=== PATIENT | male | born 1970 | race African-American/Black ===

== ENCOUNTER 2017-07-14 23:12 | Observation (INO) ==
[2017-07-15] MEDS ORDERED: MORPHINE 2 MG/1 ML SYRINGE IV STA (00:18)
[2017-07-15] MEDS ORDERED: SODIUM CHLORIDE 0.9% 500 ML IV STA (00:18)
[2017-07-15] MEDS ORDERED: ONDANSETRON 4 MG/2 ML VIAL IV STA (00:18)
[2017-07-15] MEDS ORDERED: ACETAMINOPHEN 500 MG TABLET ONE (01:02)
[2017-07-15] MEDS ORDERED: ONDANSETRON 4 MG/2 ML VIAL ONE (01:02)
[2017-07-15] MEDS ORDERED: MORPHINE 2 MG/1 ML SYRINGE ONE (01:03)
[2017-07-15 01:43] LABS: Lactic Acid 0.6 MMOL/L (0.4-2.0)
[2017-07-15 01:45] LABS: Albumin 2.9 G/DL (3.4-5.0); Bilirubin,Total 0.4 MG/DL (0.2-1.0); Calcium 7.7 MG/DL (8.5-10.1); Magnesium 1.7 MG/DL (1.8-2.4); Osmolality,Calculated 298.3 MOS/KG (273-304); Potassium 3.3 MMOL/L (3.5-5.1); Total Protein 6.1 G/DL (6.4-8.3)
[2017-07-15 01:46] LABS: Troponin I Only 0.156 NG/ML (0.00-0.045)
[2017-07-15 01:50] LABS: Basophils # 0.1 10*3/uL (0.0-0.2); Basophils % 0.7 % (0.0-0.8); Eosinophils # 0.2 10*3/uL (0.0-0.87); Eosinophils % 2.4 % (0.00-10.9); Hematocrit 32.9 VOL% (42.0-52.0); Hemoglobin 11.4 GM/DL (14.0-18.0); Immature Granulocytes % 0.6 %; Immature Granulocytes Absolute 0.05 #; Lymphocytes # 1.2 10*3/uL (1.4-4.0); Lymphocytes % 13.9 % (21.2-54.2); Mean Corpuscular HGB Conc 34.7 GM/DL (32-36); Mean Corpuscular Hemoglobin 30 PG (27-34); Mean Corpuscular Volume 85.7 FL (87-102); Mean Platelet Volume 10.7 FL (9.6-12.0); Monocytes # 1.1 10*3/uL (0.11-0.8); Monocytes % 13.1 % (1.7-12.7); Neutrophils % 69.3 % (38.7-73.9); Platelet Count 239 T/CUMM (130-400); Red Blood Count 3.84 MC/CUMM (3.8-5.5); White Blood Count 8.7 T/CUMM (4-12)
[2017-07-15] MEDS ORDERED: hydrALAZINE 20 MG/1 ML VIAL ONE (01:54)
[2017-07-15] MEDS ORDERED: MAGNESIUM SULF RIDER 2 GM in PREMIX 1 EACH IV STA (01:58)
[2017-07-15] MEDS ORDERED: hydrALAZINE 20 MG/1 ML VIAL IV STA (02:01)
[2017-07-15] MEDS ORDERED: MAGNESIUM SULF RIDER 50 ML IV ONE (02:02)
[2017-07-15 02:09] LABS: Apearance,Urine CLEAR (Clear); Bacteria,Urine Occasional /HPF (Few); Bilirubin,Urine Negative (Negative); Blood, Urine Small mg/dL (Negative); Glucose,Urine (UA) Negative (Negative); Ketones,Urine Negative (Negative); Mucus,Urine Occasional /LPF (Occasional); Nitrite,Urine Negative (Negative); Protein,Urine 100 MG/DL; RBC,Urine 8 /HPF (0-4); Squamous Epithelial Cell,Urine Occasional /HPF (0-10); Urine Color Straw (Yellow); Urine Specific Gravity 1.008 (1.001-1.035); Urine Urobilinogen < 2.0 EU/DL (0.2-1.0); WBC,Urine 1 /HPF (0-6)
[2017-07-15] MEDS ORDERED: ACETAMINOPHEN 325 MG TABLET PO PRN (03:32)
[2017-07-15] MEDS ORDERED: hydrALAZINE 20 MG/1 ML VIAL IV PRN (03:42)
[2017-07-15] MEDS ORDERED: INFLUENZA VIRUS VACCINE 0.5 ML SYRINGE IM ONE (05:16)
[2017-07-15 08:14] LABS: Bilirubin,Total 1.2 MG/DL (0.2-1.0); Calcium 7.6 MG/DL (8.5-10.1); Total Protein 5.6 G/DL (6.4-8.3)
[2017-07-15 08:15] LABS: Albumin 2.7 G/DL (3.4-5.0); Osmolality,Calculated 295.4 MOS/KG (273-304); Potassium 3.2 MMOL/L (3.5-5.1)
[2017-07-15] MEDS: hydroCHLOROthiazide 25 MG TABLET PO SCH (08:31)
[2017-07-15] MEDS: amLODIPine 10 MG TABLET PO SCH (08:31)
[2017-07-15] MEDS: PANTOPRAZOLE 40 MG TABLET PO SCH (08:32)
[2017-07-15] MEDS: ISOSORBIDE MONONITRATE 30 MG TABLET PO SCH (08:32)
[2017-07-15] MEDS: OSELTAMIVIR 30 MG CAPSULE PO SCH (08:36)
[2017-07-15] MEDS ORDERED: OSELTAMIVIR 30 MG CAPSULE PO SCH (09:00)
[2017-07-16 04:33] LABS: Basophils % 0.5 % (0.0-0.8); Eosinophils # 0.2 10*3/uL (0.0-0.87); Hematocrit 31.6 VOL% (42.0-52.0); Hemoglobin 10.7 GM/DL (14.0-18.0); Immature Granulocytes % 0.2 %; Immature Granulocytes Absolute 0.01 #; Lymphocytes # 1.5 10*3/uL (1.4-4.0); Lymphocytes % 26.8 % (21.2-54.2); Mean Corpuscular HGB Conc 33.9 GM/DL (32-36); Mean Corpuscular Hemoglobin 29 PG (27-34); Mean Corpuscular Volume 86.3 FL (87-102); Mean Platelet Volume 10.6 FL (9.6-12.0); Monocytes # 0.9 10*3/uL (0.11-0.8); Monocytes % 16.2 % (1.7-12.7); Neutrophils % 52.3 % (38.7-73.9); Platelet Count 210 T/CUMM (130-400); Red Blood Count 3.66 MC/CUMM (3.8-5.5); Red Cell Distribution Width 13.9 % (9.3-17.3); White Blood Count 5.7 T/CUMM (4-12)
[2017-07-16 05:22] LABS: Calcium 7.8 MG/DL (8.5-10.1); Osmolality,Calculated 293.7 MOS/KG (273-304); Potassium 3.2 MMOL/L (3.5-5.1)
[2017-07-16 07:39] LABS: Eosinophils 2 % (0-10); Hypochromasia 1+; Lymphocytes 24 % (20-55); Platelet Estimate Adequate; Segmented Neutrophils 72 % (50-85); Total Cells Counted 100
[2017-07-16] MEDS ORDERED: BISACODYL 5 MG TABLET PO ONE (08:42)
[2017-07-16] MEDS: amLODIPine 10 MG TABLET PO SCH (09:32)
[2017-07-16] MEDS: hydroCHLOROthiazide 25 MG TABLET PO SCH (09:32)
[2017-07-16] MEDS: PANTOPRAZOLE 40 MG TABLET PO SCH (09:33)
[2017-07-16] MEDS: ISOSORBIDE MONONITRATE 30 MG TABLET PO SCH (09:33)
[2017-07-16] MEDS: OSELTAMIVIR 30 MG CAPSULE PO SCH (10:05)
[2017-07-16] MEDS: LABETALOL 200 MG TABLET PO SCH (21:20)
[2017-07-16] MEDS: POTASSIUM BICARB EFFERVESCENT 25 MEQ TABLET PO SCH (21:20)
[2017-07-17 05:18] LABS: Magnesium 2.2 MG/DL (1.8-2.4); Osmolality,Calculated 296.7 MOS/KG (273-304); Potassium 3.1 MMOL/L (3.5-5.1)
[2017-07-17 06:07] LABS: Basophils % 0.6 % (0.0-0.8); Eosinophils # 0.2 10*3/uL (0.0-0.87); Hematocrit 30.5 VOL% (42.0-52.0); Hemoglobin 10.4 GM/DL (14.0-18.0); Immature Granulocytes % 0.4 %; Immature Granulocytes Absolute 0.02 #; Lymphocytes # 1.8 10*3/uL (1.4-4.0); Lymphocytes % 33.8 % (21.2-54.2); Mean Corpuscular HGB Conc 34.1 GM/DL (32-36); Mean Corpuscular Hemoglobin 29 PG (27-34); Mean Corpuscular Volume 85.2 FL (87-102); Mean Platelet Volume 10.9 FL (9.6-12.0); Monocytes # 0.7 10*3/uL (0.11-0.8); Monocytes % 13.6 % (1.7-12.7); Neutrophils # 2.5 10*3/uL (1.4-7.4); Neutrophils % 47.6 % (38.7-73.9); Platelet Count 226 T/CUMM (130-400); Red Blood Count 3.58 MC/CUMM (3.8-5.5); Red Cell Distribution Width 13.8 % (9.3-17.3); White Blood Count 5.3 T/CUMM (4-12)
[2017-07-17 08:50] VITALS: BP 137/75
[2017-07-17] MEDS ORDERED: POTASSIUM CHLORIDE 20 MEQ PACK PO ONE (09:53)
[2017-07-17] MEDS: POTASSIUM BICARB EFFERVESCENT 25 MEQ TABLET PO SCH (10:27)
[2017-07-17] MEDS: ISOSORBIDE MONONITRATE 30 MG TABLET PO SCH (10:27)
[2017-07-17] MEDS: OSELTAMIVIR 30 MG CAPSULE PO SCH (10:28)
[2017-07-17] MEDS: LABETALOL 200 MG TABLET PO SCH (10:28)
[2017-07-17] MEDS: amLODIPine 10 MG TABLET PO SCH (10:28)
[2017-07-17] MEDS: PANTOPRAZOLE 40 MG TABLET PO SCH (10:28)
== END 2017-07-17 12:34 | disposition home or self-care (01) ==
LOC: N.EDINP 23:12 → N.ED 23:12 → N.TELEN 07-15 04:03
PROVIDERS: ADMIT Internal Medicine; ATTEND Internal Medicine

== ENCOUNTER 2017-09-02 08:11 | Inpatient (IN) ==
[2017-09-02] MEDS ORDERED: SODIUM CHLORIDE 0.9% 1,000 ML IV STA (08:51)
[2017-09-02] MEDS ORDERED: cloNIDine 0.1 MG TABLET PO STA (08:51)
[2017-09-02] MEDS ORDERED: cloNIDine 0.1 MG TABLET ONE (09:27)
[2017-09-02 09:30] LABS: Basophils % 0.3 % (0.0-0.8); Eosinophils % 0.3 % (0.00-10.9); Hematocrit 37.1 VOL% (42.0-52.0); Hemoglobin 12.2 GM/DL (14.0-18.0); Immature Granulocytes % 0.7 %; Immature Granulocytes Absolute 0.09 #; Lymphocytes # 0.8 10*3/uL (1.4-4.0); Lymphocytes % 6.6 % (21.2-54.2); Mean Corpuscular HGB Conc 32.9 GM/DL (32-36); Mean Corpuscular Hemoglobin 29 PG (27-34); Mean Corpuscular Volume 87.5 FL (87-102); Mean Platelet Volume 9.7 FL (9.6-12.0); Monocytes % 7.8 % (1.7-12.7); Neutrophils # 10.5 10*3/uL (1.4-7.4); Neutrophils % 84.3 % (38.7-73.9); Platelet Count 284 T/CUMM (130-400); Red Blood Count 4.24 MC/CUMM (3.8-5.5); Red Cell Distribution Width 14.6 % (9.3-17.3); White Blood Count 12.4 T/CUMM (4-12)
[2017-09-02 09:41] LABS: INR 1.1; PT Patient Result 11.4 SECS; Partial Thromboplastin Time 27.3 SECS (0-40)
[2017-09-02] MEDS ORDERED: LEVOFLOXACIN INJ 500 MG in PREMIX 1 EACH IV STA (09:46)
[2017-09-02 09:51] LABS: Albumin 3.7 G/DL (3.4-5.0); Bilirubin,Total 0.6 MG/DL (0.2-1.0); Calcium 8.4 MG/DL (8.5-10.1); Osmolality,Calculated 294.1 MOS/KG (273-304); Potassium 3.9 MMOL/L (3.5-5.1); Troponin I Only 0.027 NG/ML (0.00-0.045)
[2017-09-02] MEDS ORDERED: ALBUTEROL/IPRATROPIUM 3 ML NEB RESP TX STA (10:17)
[2017-09-02] MEDS ORDERED: LEVOFLOXACIN INJ 100 ML IV ONE (11:07)
[2017-09-02] MEDS ORDERED: guaiFENesin/DM ER 600-30 MG TABLET PO PRN (11:12)
[2017-09-02] MEDS ORDERED: ONDANSETRON 4 MG/2 ML VIAL IV PRN (11:12)
[2017-09-02] MEDS ORDERED: ACETAMINOPHEN 325 MG TABLET PO PRN (11:12)
[2017-09-02] MEDS ORDERED: ALBUTEROL 2.5 MG/3 ML NEB RESP TX PRN (11:12)
[2017-09-02] MEDS ORDERED: LEVOFLOXACIN INJ 750 MG in PREMIX 1 EACH IV STA (11:26)
[2017-09-02] MEDS: niCARdipine INJ 25 MG in SODIUM CHLORIDE 0.9% 240 ML IV SCH ×2 (11:37→16:50)
[2017-09-02] MEDS ORDERED: PANTOPRAZOLE 40 MG VIAL IV SCH (12:00)
[2017-09-02] MEDS ORDERED: FUROSEMIDE 40 MG/4 ML VIAL IV ONE (16:35)
[2017-09-02] MEDS ORDERED: BENZONATATE 100 MG CAPSULE PO PRN (16:36)
[2017-09-02] MEDS ORDERED: AZITHROMYCIN INJ 250 MG in SODIUM CHLORIDE 0.9% 250 ML IV SCH (17:00)
[2017-09-02] MEDS ORDERED: SODIUM CHLORIDE 0.9% 1,000 ML IV PRN (18:43)
[2017-09-02] MEDS: LABETALOL 200 MG TABLET PO SCH ×2 (19:07→22:06)
[2017-09-02] MEDS: niCARdipine INJ 50 MG in SODIUM CHLORIDE 0.9% 480 ML IV SCH (19:08)
[2017-09-02] MEDS ORDERED: LABETALOL 200 MG TABLET PO SCH (21:00)
[2017-09-03] MEDS: niCARdipine INJ 50 MG in SODIUM CHLORIDE 0.9% 480 ML IV SCH ×2 (00:19→08:22)
[2017-09-03 06:06] LABS: Basophils % 0.5 % (0.0-0.8); Eosinophils # 0.1 10*3/uL (0.0-0.87); Eosinophils % 1.4 % (0.00-10.9); Hematocrit 29.4 VOL% (42.0-52.0); Hemoglobin 9.5 GM/DL (14.0-18.0); Immature Granulocytes % 0.4 %; Immature Granulocytes Absolute 0.03 #; Lymphocytes # 1.6 10*3/uL (1.4-4.0); Mean Corpuscular HGB Conc 32.3 GM/DL (32-36); Mean Corpuscular Hemoglobin 28 PG (27-34); Mean Corpuscular Volume 87.8 FL (87-102); Monocytes # 0.8 10*3/uL (0.11-0.8); Monocytes % 10.2 % (1.7-12.7); Neutrophils # 5.4 10*3/uL (1.4-7.4); Neutrophils % 67.5 % (38.7-73.9); Platelet Count 233 T/CUMM (130-400); Red Blood Count 3.35 MC/CUMM (3.8-5.5); Red Cell Distribution Width 14.3 % (9.3-17.3)
[2017-09-03 06:33] LABS: Calcium 7.5 MG/DL (8.5-10.1); Osmolality,Calculated 291.4 MOS/KG (273-304); Potassium 3.5 MMOL/L (3.5-5.1)
[2017-09-03] MEDS: ISOSORBIDE MONONITRATE 30 MG TABLET PO SCH (08:53)
[2017-09-03] MEDS: PANTOPRAZOLE 40 MG TABLET PO SCH (08:53)
[2017-09-03] MEDS: LABETALOL 200 MG TABLET PO SCH ×2 (08:53→21:37)
[2017-09-03] MEDS: LEVOFLOXACIN 250 MG TABLET PO SCH (08:53)
[2017-09-03] MEDS ORDERED: FUROSEMIDE 40 MG/4 ML VIAL IV ONE (08:57)
[2017-09-03] MEDS: AZITHROMYCIN 250 MG TABLET PO SCH (09:25)
[2017-09-04 04:41] LABS: Basophils % 0.6 % (0.0-0.8); Eosinophils # 0.2 10*3/uL (0.0-0.87); Eosinophils % 3.2 % (0.00-10.9); Hematocrit 28.5 VOL% (42.0-52.0); Hemoglobin 9.5 GM/DL (14.0-18.0); Immature Granulocytes % 0.3 %; Immature Granulocytes Absolute 0.02 #; Lymphocytes # 1.5 10*3/uL (1.4-4.0); Lymphocytes % 23.6 % (21.2-54.2); Mean Corpuscular HGB Conc 33.3 GM/DL (32-36); Mean Corpuscular Hemoglobin 28 PG (27-34); Mean Corpuscular Volume 85.3 FL (87-102); Mean Platelet Volume 10.5 FL (9.6-12.0); Monocytes # 0.8 10*3/uL (0.11-0.8); Monocytes % 13.3 % (1.7-12.7); Neutrophils # 3.7 10*3/uL (1.4-7.4); Platelet Count 231 T/CUMM (130-400); Red Blood Count 3.34 MC/CUMM (3.8-5.5); Red Cell Distribution Width 14.5 % (9.3-17.3); White Blood Count 6.2 T/CUMM (4-12)
[2017-09-04 05:01] LABS: Magnesium 1.9 MG/DL (1.8-2.4); Osmolality,Calculated 290.4 MOS/KG (273-304); Potassium 3.7 MMOL/L (3.5-5.1)
[2017-09-04] MEDS: AZITHROMYCIN 250 MG TABLET PO SCH (09:25)
[2017-09-04] MEDS: LABETALOL 200 MG TABLET PO SCH ×2 (09:25→21:26)
[2017-09-04] MEDS: PANTOPRAZOLE 40 MG TABLET PO SCH (09:25)
[2017-09-04] MEDS: ISOSORBIDE MONONITRATE 30 MG TABLET PO SCH (09:26)
[2017-09-04] MEDS ORDERED: FUROSEMIDE 80 MG TABLET PO ONE (14:40)
[2017-09-05] MEDS: LEVOFLOXACIN 250 MG TABLET PO SCH (08:45)
[2017-09-05] MEDS: PANTOPRAZOLE 40 MG TABLET PO SCH (08:45)
[2017-09-05] MEDS: LABETALOL 200 MG TABLET PO SCH (08:45)
[2017-09-05] MEDS: AZITHROMYCIN 250 MG TABLET PO SCH (08:45)
[2017-09-05] MEDS: ISOSORBIDE MONONITRATE 30 MG TABLET PO SCH (08:45)
[2017-09-05 12:11] VITALS: BP 141/74
[2017-09-06 15:14] LABS: Myeloperoxidase Antibody < 0.2 U
== END 2017-09-05 14:27 | disposition home or self-care (01) | DRG 682 ==
LOC: N.ED 08:11 → N.EDINP 11:12 → N.CC 12:48 → N.2E 09-04 14:39
PROVIDERS: ADMIT Family Medicine; ATTEND Family Medicine

== ENCOUNTER 2018-03-24 08:34 | Inpatient (IN) ==
[2018-03-24] MEDS ORDERED: ONDANSETRON 4 MG/2 ML VIAL IV STA (09:20)
[2018-03-24] MEDS ORDERED: hydrALAZINE 20 MG/1 ML VIAL IV STA (09:26)
[2018-03-24 10:10] LABS: Basophils % 0.4 % (0.0-0.8); Eosinophils # 0.1 10*3/uL (0.0-0.87); Hematocrit 30.8 VOL% (42.0-52.0); Immature Granulocytes % 0.4 %; Immature Granulocytes Absolute 0.02 #; Lymphocytes # 1.1 10*3/uL (1.4-4.0); Lymphocytes % 20.9 % (21.2-54.2); Mean Corpuscular HGB Conc 32.5 GM/DL (32-36); Mean Corpuscular Hemoglobin 28 PG (27-34); Mean Corpuscular Volume 87.5 FL (87-102); Mean Platelet Volume 10.2 FL (9.6-12.0); Monocytes # 0.6 10*3/uL (0.11-0.8); Monocytes % 12.2 % (1.7-12.7); Neutrophils # 3.3 10*3/uL (1.4-7.4); Neutrophils % 65.1 % (38.7-73.9); Platelet Count 261 T/CUMM (130-400); Red Blood Count 3.52 MC/CUMM (3.8-5.5); White Blood Count 5.1 T/CUMM (4-12)
[2018-03-24 10:33] LABS: Apearance,Urine CLEAR (Clear); Bilirubin,Urine Negative (Negative); Blood, Urine Negative (Negative); Glucose,Urine (UA) Negative (Negative); Ketones,Urine Negative (Negative); Nitrite,Urine Negative (Negative); Protein,Urine 100 MG/DL; RBC,Urine 1 /HPF (0-4); Urine Color Yellow (Yellow); Urine Specific Gravity 1.009 (1.001-1.035); Urine Urobilinogen < 2.0 EU/DL (0.2-1.0); WBC,Urine 2 /HPF (0-6)
[2018-03-24 10:45] LABS: Alkaline Phosphatase 79 U/L (45-117); Aspartate Amino Transferase 22 U/L (0-37); Calcium 8.9 MG/DL (8.5-10.1)
[2018-03-24 10:46] LABS: Alanine Aminotransferase 35 U/L (16-61); Albumin 3.5 G/DL (3.4-5.0); Amylase 80 U/L (25-115); Blood Urea Nitrogen 47 MG/DL (7-18); Glucose 88 MG/DL (74-106); Osmolality,Calculated 293.1 MOS/KG (273-304); Potassium 3.8 MMOL/L (3.5-5.1); Sodium 142 MMOL/L (136-145); Total Protein 6.7 G/DL (6.4-8.3)
[2018-03-24] MEDS ORDERED: ATENOLOL 25 MG TABLET ONE (11:21)
[2018-03-24] MEDS ORDERED: ATENOLOL 25 MG TABLET PO STA (11:21)
[2018-03-24] MEDS ORDERED: ACETAMINOPHEN 325 MG TABLET PO PRN (13:03)
[2018-03-24] MEDS ORDERED: DOCUSATE SODIUM 100 MG CAPSULE PO PRN (13:03)
[2018-03-24] MEDS ORDERED: SODIUM CHLORIDE 0.9% 1,000 ML IV SCH ×2 (13:30→16:00)
[2018-03-24] MEDS ORDERED: LABETALOL 20 MG/4 ML SYRINGE IV STA (14:23)
[2018-03-24] MEDS ORDERED: LABETALOL 100 MG/20 ML VIAL IV ONE (14:31)
[2018-03-24] MEDS ORDERED: hydrALAZINE 20 MG/1 ML VIAL IV PRN (16:53)
[2018-03-24] MEDS ORDERED: ISOSORBIDE MONONITRATE 30 MG TABLET PO SCH (17:00)
[2018-03-24] MEDS ORDERED: amLODIPine 5 MG TABLET PO SCH (17:30)
[2018-03-24] MEDS ORDERED: FUROSEMIDE 80 MG TABLET PO SCH (17:34)
[2018-03-24] MEDS ORDERED: SODIUM CHLORIDE 0.45% 1,000 ML IV SCH (18:20)
[2018-03-24] MEDS: niCARdipine INJ 25 MG in SODIUM CHLORIDE 0.9% 240 ML IV PRN ×2 (18:45→21:35)
[2018-03-24] MEDS ORDERED: LABETALOL 200 MG TABLET PO SCH (21:00)
[2018-03-24] MEDS: niCARdipine INJ 50 MG in SODIUM CHLORIDE 0.9% 480 ML IV PRN (23:34)
[2018-03-25] MEDS: niCARdipine INJ 50 MG in SODIUM CHLORIDE 0.9% 480 ML IV PRN ×5 (03:43→20:40)
[2018-03-25 04:26] LABS: Basophils # 0.1 10*3/uL (0.0-0.2); Basophils % 0.8 % (0.0-0.8); Eosinophils # 0.2 10*3/uL (0.0-0.87); Eosinophils % 2.1 % (0.00-10.9); Hematocrit 34.1 VOL% (42.0-52.0); Hemoglobin 11.2 GM/DL (14.0-18.0); Immature Granulocytes % 0.3 %; Immature Granulocytes Absolute 0.02 #; Lymphocytes # 1.3 10*3/uL (1.4-4.0); Lymphocytes % 16.6 % (21.2-54.2); Mean Corpuscular HGB Conc 32.8 GM/DL (32-36); Mean Corpuscular Hemoglobin 28 PG (27-34); Mean Corpuscular Volume 86.3 FL (87-102); Mean Platelet Volume 10.6 FL (9.6-12.0); Monocytes # 0.8 10*3/uL (0.11-0.8); Monocytes % 10.8 % (1.7-12.7); Neutrophils # 5.4 10*3/uL (1.4-7.4); Neutrophils % 69.4 % (38.7-73.9); Platelet Count 326 T/CUMM (130-400); Red Blood Count 3.95 MC/CUMM (3.8-5.5); White Blood Count 7.8 T/CUMM (4-12)
[2018-03-25 05:04] LABS: Osmolality,Calculated 294.1 MOS/KG (273-304); Potassium 3.7 MMOL/L (3.5-5.1); Risk Ratio 2.86; Thyroid Stimulating Hormone 1.2 uIU/ml (0.358-3.74); VLDL CHOLESTEROL 11.6 MG/DL
[2018-03-25] MEDS: FUROSEMIDE 40 MG/4 ML VIAL IV SCH (08:34)
[2018-03-25] MEDS: ASPIRIN CHEW 81 MG TABLET PO SCH (08:53)
[2018-03-25] MEDS: cloNIDine 0.3 MG/24 HR PATCH TRANSDERM SCH ×2 (08:53→12:00)
[2018-03-25] MEDS ORDERED: PANTOPRAZOLE 40 MG TABLET PO SCH (09:00)
[2018-03-25] MEDS ORDERED: ISOSORBIDE MONONITRATE 30 MG TABLET PO SCH (09:00)
[2018-03-25] MEDS: LABETALOL 200 MG TABLET PO SCH ×2 (10:25→20:41)
[2018-03-25] MEDS ORDERED: METOCLOPRAMIDE 5 MG TABLET PO PRN (11:44)
[2018-03-25] MEDS: ONDANSETRON 4 MG/2 ML VIAL IV PRN ×2 (11:56→18:10)
[2018-03-25] MEDS ORDERED: FUROSEMIDE 80 MG TABLET PO SCH (17:32)
[2018-03-25] MEDS ORDERED: LEVOFLOXACIN INJ 750 MG in PREMIX 1 EACH IV ONE (18:30)
[2018-03-25] MEDS: HYDROmorphone 2 MG/1 ML VIAL IV PRN ×2 (18:32→22:21)
[2018-03-25 18:55] LABS: Basophils % 0.6 % (0.0-0.8); Eosinophils % 0.3 % (0.00-10.9); Hematocrit 34.2 VOL% (42.0-52.0); Hemoglobin 11.2 GM/DL (14.0-18.0); Immature Granulocytes % 0.4 %; Immature Granulocytes Absolute 0.03 #; Lymphocytes # 0.9 10*3/uL (1.4-4.0); Lymphocytes % 12.8 % (21.2-54.2); Mean Corpuscular HGB Conc 32.7 GM/DL (32-36); Mean Corpuscular Hemoglobin 29 PG (27-34); Mean Corpuscular Volume 87.7 FL (87-102); Mean Platelet Volume 10.5 FL (9.6-12.0); Monocytes # 0.5 10*3/uL (0.11-0.8); Monocytes % 6.7 % (1.7-12.7); Neutrophils # 5.3 10*3/uL (1.4-7.4); Neutrophils % 79.2 % (38.7-73.9); Platelet Count 306 T/CUMM (130-400); Red Cell Distribution Width 14.9 % (9.3-17.3); White Blood Count 6.7 T/CUMM (4-12)
[2018-03-25 19:19] LABS: Calcium 8.6 MG/DL (8.5-10.1); Osmolality,Calculated 294.1 MOS/KG (273-304); Potassium 3.7 MMOL/L (3.5-5.1)
[2018-03-25] MEDS: MEROPENEM 500 MG in SODIUM CHLORIDE 0.9% 100 ML IV SCH (20:03)
[2018-03-26] MEDS: niCARdipine INJ 50 MG in SODIUM CHLORIDE 0.9% 480 ML IV PRN ×4 (00:22→23:09)
[2018-03-26] MEDS: HYDROmorphone 2 MG/1 ML VIAL IV PRN ×6 (00:58→22:32)
[2018-03-26 04:30] LABS: Basophils % 0.3 % (0.0-0.8); Eosinophils % 0.2 % (0.00-10.9); Hematocrit 35.7 VOL% (42.0-52.0); Hemoglobin 11.5 GM/DL (14.0-18.0); Immature Granulocytes % 0.3 %; Immature Granulocytes Absolute 0.02 #; Lymphocytes # 0.8 10*3/uL (1.4-4.0); Lymphocytes % 13.7 % (21.2-54.2); Mean Corpuscular HGB Conc 32.2 GM/DL (32-36); Mean Corpuscular Hemoglobin 29 PG (27-34); Mean Corpuscular Volume 88.6 FL (87-102); Mean Platelet Volume 10.6 FL (9.6-12.0); Monocytes # 0.6 10*3/uL (0.11-0.8); Monocytes % 9.2 % (1.7-12.7); Neutrophils # 4.6 10*3/uL (1.4-7.4); Neutrophils % 76.3 % (38.7-73.9); Platelet Count 333 T/CUMM (130-400); Red Blood Count 4.03 MC/CUMM (3.8-5.5); Red Cell Distribution Width 15.1 % (9.3-17.3); White Blood Count 6.1 T/CUMM (4-12)
[2018-03-26 04:45] LABS: Potassium 3.8 MMOL/L (3.5-5.1)
[2018-03-26] MEDS: MEROPENEM 500 MG in SODIUM CHLORIDE 0.9% 100 ML IV SCH ×2 (08:08→20:31)
[2018-03-26] MEDS: ASPIRIN CHEW 81 MG TABLET PO SCH (11:03)
[2018-03-26] MEDS: LABETALOL 200 MG TABLET PO SCH ×2 (11:04→21:07)
[2018-03-26] MEDS: cloNIDine 0.3 MG/24 HR PATCH TRANSDERM SCH (11:25)
[2018-03-26] MEDS: PANTOPRAZOLE 40 MG VIAL IV SCH (11:26)
[2018-03-26] MEDS: FUROSEMIDE 40 MG/4 ML VIAL IV SCH (11:27)
[2018-03-26] MEDS ORDERED: FAMOTIDINE 20 MG/2 ML VIAL IV ONE (19:00)
[2018-03-26] MEDS ORDERED: TISSUE ADHESIVE 1 EACH APPLICATOR TOP ONE (19:54)
[2018-03-26] MEDS ORDERED: PROPOFOL 200 MG/20 ML VIAL IV ONE (20:47)
[2018-03-26] MEDS ORDERED: ROCURONIUM 100 MG/10 ML VIAL IV ONE (20:48)
[2018-03-26] MEDS ORDERED: SUCCINYLCHOLINE 200 MG/10 ML VIAL ONE (20:48)
[2018-03-26] MEDS ORDERED: PHENYLEPHRINE 10 MG/1 ML VIAL IV ONE (20:48)
[2018-03-26] MEDS ORDERED: MIDAZOLAM 2 MG/2 ML VIAL ONE (20:48)
[2018-03-26] MEDS ORDERED: fentaNYL 100 MCG/2 ML VIAL ONE (20:48)
[2018-03-26 20:49] LABS: Apearance,Urine CLEAR (Clear); Bilirubin,Urine Negative (Negative); Blood, Urine Small mg/dL (Negative); Glucose,Urine (UA) Negative (Negative); Hyaline Casts,Urine 1 /LPF (0-3); Ketones,Urine Negative (Negative); Mucus,Urine Occasional /LPF (Occasional); Nitrite,Urine Negative (Negative); Protein,Urine 30 MG/DL; RBC,Urine 1 /HPF (0-4); Urine Color Yellow (Yellow); Urine Specific Gravity 1.008 (1.001-1.035); Urine Urobilinogen < 2.0 EU/DL (0.2-1.0); WBC,Urine 1 /HPF (0-6)
[2018-03-26] MEDS ORDERED: ePHEDrine 50 MG/ML AMP ONE (20:49)
[2018-03-26] MEDS ORDERED: ONDANSETRON 4 MG/2 ML VIAL ONE (20:49)
[2018-03-26] MEDS ORDERED: SEVOFLURANE 1 UNIT/15 MINUTE INH ONE (20:49)
[2018-03-26] MEDS ORDERED: SODIUM CHLORIDE 0.9% 250 ML IV ONE (20:49)
[2018-03-26] MEDS ORDERED: GLYCOPYRROLATE 0.4 MG/2 ML VIAL ONE (20:49)
[2018-03-26] MEDS ORDERED: SODIUM CHLORIDE 0.9% 1,000 ML IV ONE (20:49)
[2018-03-26] MEDS ORDERED: NEOSTIGMINE 10 MG/10 ML VIAL ONE (20:50)
[2018-03-27] MEDS: niCARdipine INJ 50 MG in SODIUM CHLORIDE 0.9% 480 ML IV PRN ×4 (04:13→20:48)
[2018-03-27] MEDS: HYDROmorphone 2 MG/1 ML VIAL IV PRN ×4 (04:17→22:24)
[2018-03-27 05:49] LABS: Basophils # 0.1 10*3/uL (0.0-0.2); Basophils % 0.5 % (0.0-0.8); Eosinophils % 0.1 % (0.00-10.9); Hematocrit 41.4 VOL% (42.0-52.0); Hemoglobin 13.7 GM/DL (14.0-18.0); Immature Granulocytes % 0.5 %; Immature Granulocytes Absolute 0.05 #; Lymphocytes # 0.9 10*3/uL (1.4-4.0); Lymphocytes % 8.7 % (21.2-54.2); Mean Corpuscular HGB Conc 33.1 GM/DL (32-36); Mean Corpuscular Hemoglobin 29 PG (27-34); Mean Corpuscular Volume 86.3 FL (87-102); Mean Platelet Volume 10.4 FL (9.6-12.0); Monocytes % 10.5 % (1.7-12.7); Neutrophils # 7.9 10*3/uL (1.4-7.4); Neutrophils % 79.7 % (38.7-73.9); Platelet Count 366 T/CUMM (130-400); Red Cell Distribution Width 15.4 % (9.3-17.3)
[2018-03-27 06:08] LABS: Albumin 2.8 G/DL (3.4-5.0); Bilirubin,Total 0.5 MG/DL (0.2-1.0); Calcium 8.5 MG/DL (8.5-10.1); Osmolality,Calculated 301.6 MOS/KG (273-304); Potassium 4.1 MMOL/L (3.5-5.1); Total Protein 6.1 G/DL (6.4-8.3)
[2018-03-27] MEDS ORDERED: CLINDAMYCIN INJ 900 MG in PREMIX 1 EACH IV ONE (06:30)
[2018-03-27] MEDS: MEROPENEM 500 MG in SODIUM CHLORIDE 0.9% 100 ML IV SCH ×2 (08:12→23:16)
[2018-03-27] MEDS: ASPIRIN CHEW 81 MG TABLET PO SCH (10:03)
[2018-03-27] MEDS: LABETALOL 200 MG TABLET PO SCH ×2 (10:03→22:25)
[2018-03-27] MEDS: FUROSEMIDE 40 MG/4 ML VIAL IV SCH (10:08)
[2018-03-27] MEDS: PANTOPRAZOLE 40 MG VIAL IV SCH (10:11)
[2018-03-27] MEDS ORDERED: LIDOCAINE/PRILOCAINE CREAM 5 GM TUBE TOP ONE (10:26)
[2018-03-27 12:20] LABS: Hepatitis A Ab IgM Quant 0.26 Index; Hepatitis A Ab IgM Result Negative (Negative); Hepatitis B Core IgM Quant < 0.05 Index; Hepatitis B Core IgM Result Negative (Negative); Hepatitis B Surface Ag Quant < 0.10 Index; Hepatitis B Surface Ag Result Negative (Negative); Hepatitis C Virus Ab Quant 0.02 Index; Hepatitis C Virus Ab Result Negative (Negative)
[2018-03-27] MEDS: LEVOFLOXACIN INJ 500 MG in PREMIX 1 EACH IV SCH (18:09)
[2018-03-28] MEDS: HYDROmorphone 2 MG/1 ML VIAL IV PRN ×4 (01:23→13:39)
[2018-03-28] MEDS: niCARdipine INJ 50 MG in SODIUM CHLORIDE 0.9% 480 ML IV PRN ×4 (01:32→17:17)
[2018-03-28 05:48] LABS: Basophils % 0.4 % (0.0-0.8); Eosinophils # 0.1 10*3/uL (0.0-0.87); Eosinophils % 0.6 % (0.00-10.9); Hematocrit 39.5 VOL% (42.0-52.0); Immature Granulocytes % 0.9 %; Immature Granulocytes Absolute 0.09 #; Lymphocytes # 1.3 10*3/uL (1.4-4.0); Lymphocytes % 12.9 % (21.2-54.2); Mean Corpuscular HGB Conc 32.9 GM/DL (32-36); Mean Corpuscular Hemoglobin 28 PG (27-34); Mean Corpuscular Volume 86.1 FL (87-102); Mean Platelet Volume 9.9 FL (9.6-12.0); Monocytes # 1.3 10*3/uL (0.11-0.8); Monocytes % 12.9 % (1.7-12.7); Neutrophils # 7.3 10*3/uL (1.4-7.4); Neutrophils % 72.3 % (38.7-73.9); Platelet Count 295 T/CUMM (130-400); Red Blood Count 4.59 MC/CUMM (3.8-5.5); Red Cell Distribution Width 15.4 % (9.3-17.3); White Blood Count 10.1 T/CUMM (4-12)
[2018-03-28 06:15] LABS: Osmolality,Calculated 298.7 MOS/KG (273-304); Potassium 3.9 MMOL/L (3.5-5.1)
[2018-03-28] MEDS: MEROPENEM 500 MG in SODIUM CHLORIDE 0.9% 100 ML IV SCH ×2 (07:48→20:20)
[2018-03-28] MEDS: ASPIRIN CHEW 81 MG TABLET PO SCH (09:46)
[2018-03-28] MEDS: LABETALOL 200 MG TABLET PO SCH ×2 (09:47→20:20)
[2018-03-28] MEDS: HEPARIN 5,000 UNIT/1 ML VIAL SUBCUT SCH ×2 (09:51→16:56)
[2018-03-28] MEDS: FUROSEMIDE 40 MG/4 ML VIAL IV SCH (09:54)
[2018-03-28] MEDS: PANTOPRAZOLE 40 MG VIAL IV SCH (09:57)
[2018-03-28] MEDS ORDERED: LIDOCAINE/PRILOCAINE CREAM 5 GM TUBE TOP PRN (11:30)
[2018-03-28] MEDS: hydrALAZINE 20 MG/1 ML VIAL IV PRN ×2 (13:37→15:12)
[2018-03-28] MEDS: NITROPRUSSIDE 100 MG in DEXTROSE 5% 246 ML IV PRN (17:19)
[2018-03-29] MEDS: HEPARIN 5,000 UNIT/1 ML VIAL SUBCUT SCH ×3 (00:16→18:23)
[2018-03-29] MEDS: HYDROmorphone 2 MG/1 ML VIAL IV PRN ×2 (00:23→18:19)
[2018-03-29 04:45] LABS: Basophils % 0.2 % (0.0-0.8); Red Cell Distribution Width 15.1 % (9.3-17.3)
[2018-03-29 05:01] LABS: Eosinophils % 0.3 % (0.00-10.9); Hematocrit 31.5 VOL% (42.0-52.0); Immature Granulocytes % 0.6 %; Immature Granulocytes Absolute 0.08 #; Lymphocytes % 8.1 % (21.2-54.2); Mean Corpuscular Hemoglobin 29 PG (27-34); Mean Corpuscular Volume 87.3 FL (87-102); Mean Platelet Volume 10.4 FL (9.6-12.0); Monocytes # 1.4 10*3/uL (0.11-0.8); Monocytes % 10.8 % (1.7-12.7); Neutrophils # 10.1 10*3/uL (1.4-7.4); Platelet Count 237 T/CUMM (130-400); White Blood Count 12.6 T/CUMM (4-12)
[2018-03-29 05:07] LABS: Calcium 7.7 MG/DL (8.5-10.1); Osmolality,Calculated 300.7 MOS/KG (273-304); Potassium 3.6 MMOL/L (3.5-5.1)
[2018-03-29 05:12] LABS: Hemoglobin 10.4 GM/DL (14.0-18.0); Red Blood Count 3.61 MC/CUMM (3.8-5.5)
[2018-03-29] MEDS: NITROPRUSSIDE 100 MG in DEXTROSE 5% 246 ML IV PRN ×2 (05:15→21:00)
[2018-03-29] MEDS: MEROPENEM 500 MG in SODIUM CHLORIDE 0.9% 100 ML IV SCH ×2 (08:04→19:59)
[2018-03-29] MEDS: PANTOPRAZOLE 40 MG VIAL IV SCH (08:05)
[2018-03-29] MEDS: ASPIRIN CHEW 81 MG TABLET PO SCH (08:14)
[2018-03-29] MEDS: LABETALOL 200 MG TABLET PO SCH ×2 (08:15→20:00)
[2018-03-29] MEDS: FUROSEMIDE 40 MG/4 ML VIAL IV SCH (08:50)
[2018-03-29] MEDS: hydrALAZINE 20 MG/1 ML VIAL IV PRN ×3 (15:32→23:34)
[2018-03-29] MEDS: LEVOFLOXACIN INJ 500 MG in PREMIX 1 EACH IV SCH (18:49)
[2018-03-30] MEDS ORDERED: LABETALOL 20 MG/4 ML SYRINGE IV PRN (00:20)
[2018-03-30] MEDS: HEPARIN 5,000 UNIT/1 ML VIAL SUBCUT SCH ×3 (00:39→19:16)
[2018-03-30] MEDS: hydrALAZINE 20 MG/1 ML VIAL IV PRN ×4 (03:20→10:07)
[2018-03-30 04:21] LABS: Basophils % 0.3 % (0.0-0.8); Eosinophils # 0.1 10*3/uL (0.0-0.87); Eosinophils % 1.1 % (0.00-10.9); Hematocrit 28.2 VOL% (42.0-52.0); Hemoglobin 9.4 GM/DL (14.0-18.0); Immature Granulocytes % 0.5 %; Immature Granulocytes Absolute 0.05 #; Lymphocytes # 1.5 10*3/uL (1.4-4.0); Lymphocytes % 14.4 % (21.2-54.2); Mean Corpuscular HGB Conc 33.3 GM/DL (32-36); Mean Corpuscular Hemoglobin 29 PG (27-34); Mean Corpuscular Volume 86.2 FL (87-102); Mean Platelet Volume 10.3 FL (9.6-12.0); Monocytes # 1.2 10*3/uL (0.11-0.8); Monocytes % 12.1 % (1.7-12.7); Neutrophils # 7.3 10*3/uL (1.4-7.4); Neutrophils % 71.6 % (38.7-73.9); Platelet Count 208 T/CUMM (130-400); Red Blood Count 3.27 MC/CUMM (3.8-5.5); Red Cell Distribution Width 14.9 % (9.3-17.3); White Blood Count 10.1 T/CUMM (4-12)
[2018-03-30 04:55] LABS: Calcium 8.1 MG/DL (8.5-10.1); Osmolality,Calculated 294.8 MOS/KG (273-304); Potassium 3.7 MMOL/L (3.5-5.1)
[2018-03-30] MEDS: MEROPENEM 500 MG in SODIUM CHLORIDE 0.9% 100 ML IV SCH ×2 (08:03→20:51)
[2018-03-30] MEDS: ASPIRIN CHEW 81 MG TABLET PO SCH (08:26)
[2018-03-30] MEDS: LABETALOL 200 MG TABLET PO SCH ×2 (08:26→20:51)
[2018-03-30] MEDS: FUROSEMIDE 40 MG/4 ML VIAL IV SCH (08:35)
[2018-03-30] MEDS: PANTOPRAZOLE 40 MG VIAL IV SCH (08:38)
[2018-03-31] MEDS: HEPARIN 5,000 UNIT/1 ML VIAL SUBCUT SCH ×3 (01:56→16:52)
[2018-03-31] MEDS: hydrALAZINE 20 MG/1 ML VIAL IV PRN (03:43)
[2018-03-31 05:13] LABS: Basophils % 0.4 % (0.0-0.8); Eosinophils # 0.1 10*3/uL (0.0-0.87); Hematocrit 30.6 VOL% (42.0-52.0); Hemoglobin 10.3 GM/DL (14.0-18.0); Immature Granulocytes % 0.6 %; Immature Granulocytes Absolute 0.04 #; Lymphocytes # 1.5 10*3/uL (1.4-4.0); Lymphocytes % 21.7 % (21.2-54.2); Mean Corpuscular HGB Conc 33.7 GM/DL (32-36); Mean Corpuscular Hemoglobin 28 PG (27-34); Mean Corpuscular Volume 83.6 FL (87-102); Mean Platelet Volume 9.5 FL (9.6-12.0); Monocytes % 13.8 % (1.7-12.7); Neutrophils # 4.2 10*3/uL (1.4-7.4); Neutrophils % 61.5 % (38.7-73.9); Platelet Count 231 T/CUMM (130-400); Red Blood Count 3.66 MC/CUMM (3.8-5.5); Red Cell Distribution Width 14.4 % (9.3-17.3); White Blood Count 6.9 T/CUMM (4-12)
[2018-03-31 05:38] LABS: Osmolality,Calculated 288.5 MOS/KG (273-304); Potassium 3.4 MMOL/L (3.5-5.1)
[2018-03-31] MEDS: LABETALOL 200 MG TABLET PO SCH ×2 (09:12→21:41)
[2018-03-31] MEDS: ASPIRIN CHEW 81 MG TABLET PO SCH (09:12)
[2018-03-31] MEDS: FUROSEMIDE 40 MG TABLET PO SCH (09:12)
[2018-03-31] MEDS: MEROPENEM 500 MG in SODIUM CHLORIDE 0.9% 100 ML IV SCH (09:13)
[2018-04-01] MEDS: HEPARIN 5,000 UNIT/1 ML VIAL SUBCUT SCH ×3 (00:06→18:16)
[2018-04-01] MEDS: LABETALOL 200 MG TABLET PO SCH ×2 (14:25→21:33)
[2018-04-01] MEDS: ASPIRIN CHEW 81 MG TABLET PO SCH (14:25)
[2018-04-01] MEDS: FUROSEMIDE 40 MG TABLET PO SCH (14:25)
[2018-04-02] MEDS: HEPARIN 5,000 UNIT/1 ML VIAL SUBCUT SCH ×3 (01:38→16:43)
[2018-04-02] MEDS: ASPIRIN CHEW 81 MG TABLET PO SCH (10:10)
[2018-04-02] MEDS: FUROSEMIDE 40 MG TABLET PO SCH (10:10)
[2018-04-02] MEDS: LABETALOL 200 MG TABLET PO SCH ×2 (10:11→20:31)
[2018-04-02 11:05] LABS: Basophils % 0.5 % (0.0-0.8); Eosinophils # 0.3 10*3/uL (0.0-0.87); Eosinophils % 4.7 % (0.00-10.9); Hematocrit 30.5 VOL% (42.0-52.0); Hemoglobin 10.3 GM/DL (14.0-18.0); Immature Granulocytes % 0.4 %; Immature Granulocytes Absolute 0.02 #; Lymphocytes # 1.4 10*3/uL (1.4-4.0); Lymphocytes % 25.4 % (21.2-54.2); Mean Corpuscular HGB Conc 33.8 GM/DL (32-36); Mean Corpuscular Hemoglobin 28 PG (27-34); Mean Platelet Volume 10.3 FL (9.6-12.0); Monocytes # 1.1 10*3/uL (0.11-0.8); Neutrophils # 2.8 10*3/uL (1.4-7.4); Platelet Count 282 T/CUMM (130-400); Red Blood Count 3.63 MC/CUMM (3.8-5.5); White Blood Count 5.5 T/CUMM (4-12)
[2018-04-02 11:36] LABS: Calcium 8.5 MG/DL (8.5-10.1); Osmolality,Calculated 281.8 MOS/KG (273-304); Potassium 3.6 MMOL/L (3.5-5.1)
[2018-04-02 13:00] LABS: Eosinophils 3 % (0-10); Lymphocytes 28 % (20-55); Segmented Neutrophils 41 % (50-85); Total Cells Counted 100
[2018-04-02 13:01] LABS: Hypochromasia 1+; Microcytosis Slight; Platelet Estimate Normal; Polychromasia Slight
[2018-04-03] MEDS: HEPARIN 5,000 UNIT/1 ML VIAL SUBCUT SCH ×2 (00:25→09:58)
[2018-04-03] MEDS: hydrALAZINE 20 MG/1 ML VIAL IV PRN (05:13)
[2018-04-03] MEDS ORDERED: ALUMINUM/MAGNES/SIMETH MAX STR 30 ML UDCUP PO PRN (06:03)
[2018-04-03 07:11] LABS: Basophils % 0.6 % (0.0-0.8); Eosinophils # 0.2 10*3/uL (0.0-0.87); Eosinophils % 3.7 % (0.00-10.9); Hematocrit 31.7 VOL% (42.0-52.0); Hemoglobin 10.9 GM/DL (14.0-18.0); Immature Granulocytes % 0.7 %; Immature Granulocytes Absolute 0.04 #; Lymphocytes # 1.5 10*3/uL (1.4-4.0); Mean Corpuscular HGB Conc 34.4 GM/DL (32-36); Mean Corpuscular Hemoglobin 29 PG (27-34); Mean Corpuscular Volume 84.1 FL (87-102); Mean Platelet Volume 10.4 FL (9.6-12.0); Monocytes # 0.9 10*3/uL (0.11-0.8); Monocytes % 17.4 % (1.7-12.7); Neutrophils # 2.7 10*3/uL (1.4-7.4); Neutrophils % 49.6 % (38.7-73.9); Platelet Count 294 T/CUMM (130-400); Red Blood Count 3.77 MC/CUMM (3.8-5.5); Red Cell Distribution Width 13.9 % (9.3-17.3); White Blood Count 5.4 T/CUMM (4-12)
[2018-04-03 07:37] LABS: Atypical Lymphocytes Few; Eosinophils 4 % (0-10); Hypochromasia 1+; Lymphocytes 35 % (20-55); Microcytosis Slight; Platelet Estimate Normal; Segmented Neutrophils 46 % (50-85); Total Cells Counted 100
[2018-04-03 07:45] LABS: Albumin 2.6 G/DL (3.4-5.0); Calcium 8.7 MG/DL (8.5-10.1); Osmolality,Calculated 283.8 MOS/KG (273-304); Potassium 4.2 MMOL/L (3.5-5.1)
[2018-04-03 07:48] LABS: Ferritin 131.5 ng/ml (26-388)
[2018-04-03] MEDS ORDERED: PANTOPRAZOLE 40 MG TABLET PO SCH (09:00)
[2018-04-03 09:37] LABS: Folate 6.1 NG/ML (5.4-24.0); Vitamin B12 546 PG/ML (211-911)
[2018-04-03] MEDS: FUROSEMIDE 40 MG TABLET PO SCH (09:57)
[2018-04-03] MEDS: LABETALOL 200 MG TABLET PO SCH (09:57)
[2018-04-03] MEDS: ASPIRIN CHEW 81 MG TABLET PO SCH (09:57)
[2018-04-03 10:49] LABS: Sedimentation Rate-Westergren 45 MM/HR (0-15)
[2018-04-03] MEDS ORDERED: DOCUSATE SODIUM 100 MG CAPSULE PO SCH (11:00)
[2018-04-03 13:25] VITALS: BP 154/88
== END 2018-04-03 15:45 | disposition home or self-care (01) | DRG 356 ==
LOC: N.ED 08:34 → SUATTDRO 11:55 → N.EDINP 11:55 → N.2E 15:35 → N.ICU 18:11 → N.5E 03-31 11:47
PROVIDERS: ADMIT Internal Medicine; ATTEND Internal Medicine

== ENCOUNTER 2019-11-17 06:18 | Inpatient (IN) ==
[2019-11-17 07:12] LABS: Basophils % 0.3 % (0.0-0.8); Hematocrit 45.2 VOL% (42.0-52.0); Hemoglobin 15.2 GM/DL (14.0-18.0); Immature Granulocytes % 0.6 %; Immature Granulocytes Absolute 0.02 #; Lymphocytes # 0.6 10*3/uL (1.4-4.0); Lymphocytes % 18.3 % (21.2-54.2); Mean Corpuscular HGB Conc 33.6 GM/DL (32-36); Mean Corpuscular Volume 86.8 FL (87-102); Mean Platelet Volume 10.7 FL (9.6-12.0); Monocytes % 9.2 % (1.7-12.7); Neutrophils % 71.6 % (38.7-73.9); Platelet Count 185 T/CUMM (130-400); Red Blood Count 5.21 MC/CUMM (3.8-5.5); Red Cell Distribution Width 14.9 % (9.3-17.3); White Blood Count 3.4 T/CUMM (4-12)
[2019-11-17 07:24] LABS: Bilirubin,Total 0.5 MG/DL (0.2-1.0); Calcium 8.3 MG/DL (8.5-10.1); Osmolality,Calculated 270.6 MOS/KG (273-304); Total Protein 6.8 G/DL (6.4-8.3)
[2019-11-17] MEDS ORDERED: hydrALAZINE 20 MG/1 ML VIAL IV PRN (09:39)
[2019-11-17 10:10] LABS: Apearance,Urine CLEAR (Clear); Bilirubin,Urine Negative (Negative); Blood, Urine Small mg/dL (Negative); Glucose,Urine (UA) Negative (Negative); Ketones,Urine Negative (Negative); Nitrite,Urine Negative (Negative); Protein,Urine 100 MG/DL; RBC,Urine 1 /HPF (0-4); Squamous Epithelial Cell,Urine Occasional /HPF (0-10); Urine Color Yellow (Yellow); Urine Specific Gravity 1.012 (1.001-1.035); Urine Urobilinogen < 2.0 EU/DL (0.2-1.0)
[2019-11-17] MEDS ORDERED: HYDROXYCHLOROQUINE 200 MG TABLET PO SCH (10:30)
[2019-11-17] MEDS ORDERED: LEVOFLOXACIN INJ 750 MG in PREMIX 1 EACH IV SCH (10:30)
[2019-11-17] MEDS: LABETALOL 200 MG TABLET PO SCH ×2 (11:33→21:30)
[2019-11-17] MEDS: PANTOPRAZOLE 40 MG TABLET PO SCH (11:33)
[2019-11-17] MEDS: SEVELAMER CARBONATE 800 MG TABLET PO SCH ×2 (11:57→18:19)
[2019-11-17] MEDS: DOXYCYCLINE HYCLATE INJ 100 MG in SODIUM CHLORIDE 0.9% 100 ML IV SCH (11:57)
[2019-11-17] MEDS ORDERED: OSELTAMIVIR 30 MG CAPSULE PO ONE (12:00)
[2019-11-17 12:27] LABS: Albumin 2.8 G/DL (3.4-5.0); Bilirubin,Direct 0.14 MG/DL (0.0-0.20); Bilirubin,Indirect 0.3 MG/DL (0.0-1.0); Bilirubin,Total 0.4 MG/DL (0.2-1.0); Total Protein 6.4 G/DL (6.4-8.3)
[2019-11-17] MEDS: AZITHROMYCIN INJ 500 MG in SODIUM CHLORIDE 0.9% 250 ML IV SCH (14:06)
[2019-11-17] MEDS: HYDROXYCHLOROQUINE 200 MG TABLET PO SCH (14:06)
[2019-11-17] MEDS ORDERED: MORPHINE 4 MG/1 ML VIAL ONE (14:33)
[2019-11-17] MEDS ORDERED: NITROGLYCERIN SL 0.4 MG TABLET SL ONE (14:36)
[2019-11-17] MEDS ORDERED: MORPHINE 4 MG/1 ML VIAL IV PRN (14:43)
[2019-11-17 15:17] LABS: CKMB % 1.8 %
[2019-11-17 15:23] LABS: Troponin I 0.109 NG/ML (0.00-0.045)
[2019-11-17] MEDS: ISOSORBIDE MONONITRATE 30 MG TABLET PO SCH (15:57)
[2019-11-18] MEDS: DOXYCYCLINE HYCLATE INJ 100 MG in SODIUM CHLORIDE 0.9% 100 ML IV SCH (00:30)
[2019-11-18 04:50] LABS: Basophils % 0.6 % (0.0-0.8); Hemoglobin 14.2 GM/DL (14.0-18.0); Immature Granulocytes % 0.6 %; Immature Granulocytes Absolute 0.02 #; Lymphocytes # 0.7 10*3/uL (1.4-4.0); Lymphocytes % 20.4 % (21.2-54.2); Mean Corpuscular HGB Conc 34.6 GM/DL (32-36); Mean Corpuscular Volume 84.9 FL (87-102); Mean Platelet Volume 10.7 FL (9.6-12.0); Monocytes % 11.5 % (1.7-12.7); Neutrophils % 66.9 % (38.7-73.9); Platelet Count 175 T/CUMM (130-400); Red Blood Count 4.83 MC/CUMM (3.8-5.5); Red Cell Distribution Width 14.9 % (9.3-17.3); White Blood Count 3.5 T/CUMM (4-12)
[2019-11-18 05:35] LABS: Troponin I 0.079 NG/ML (0.00-0.045)
[2019-11-18 07:03] LABS: Albumin 2.6 G/DL (3.4-5.0); Bilirubin,Total 0.5 MG/DL (0.2-1.0); Calcium 8.2 MG/DL (8.5-10.1); Osmolality,Calculated 280.1 MOS/KG (273-304); Total Protein 6.2 G/DL (6.4-8.3)
[2019-11-18] MEDS: ISOSORBIDE MONONITRATE 30 MG TABLET PO SCH (08:40)
[2019-11-18] MEDS: HYDROXYCHLOROQUINE 200 MG TABLET PO SCH ×2 (08:40→20:37)
[2019-11-18] MEDS: PANTOPRAZOLE 40 MG TABLET PO SCH (08:40)
[2019-11-18] MEDS: ASPIRIN CHEW 81 MG TABLET PO SCH (08:40)
[2019-11-18] MEDS: LABETALOL 200 MG TABLET PO SCH ×2 (08:40→20:37)
[2019-11-18] MEDS: SEVELAMER CARBONATE 800 MG TABLET PO SCH ×3 (08:40→17:56)
[2019-11-18] MEDS: HEPARIN 5,000 UNIT/1 ML VIAL SUBCUT SCH ×2 (11:43→20:35)
[2019-11-18] MEDS: ZINC SULFATE 220 MG CAPSULE PO SCH (11:44)
[2019-11-18] MEDS ORDERED: AZTREONAM 2,000 MG in SYRINGE 1 EACH IV ONE (12:00)
[2019-11-18] MEDS: AZITHROMYCIN INJ 500 MG in SODIUM CHLORIDE 0.9% 250 ML IV SCH (15:07)
[2019-11-18] MEDS: AZTREONAM 500 MG in SODIUM CHLORIDE 0.9% 50 ML IV SCH ×2 (17:56→23:49)
[2019-11-18] MEDS ORDERED: ACETAMINOPHEN 325 MG/10.15 ML UDCUP PO ONE (20:55)
[2019-11-19 05:37] LABS: Basophils % 0.5 % (0.0-0.8); Hematocrit 43.3 VOL% (42.0-52.0); Hemoglobin 14.6 GM/DL (14.0-18.0); Immature Granulocytes % 0.5 %; Immature Granulocytes Absolute 0.02 #; Lymphocytes # 0.6 10*3/uL (1.4-4.0); Lymphocytes % 15.5 % (21.2-54.2); Mean Corpuscular HGB Conc 33.7 GM/DL (32-36); Mean Corpuscular Volume 86.8 FL (87-102); Mean Platelet Volume 10.3 FL (9.6-12.0); Monocytes % 11.7 % (1.7-12.7); Neutrophils % 71.8 % (38.7-73.9); Platelet Count 224 T/CUMM (130-400); Red Blood Count 4.99 MC/CUMM (3.8-5.5); Red Cell Distribution Width 15.1 % (9.3-17.3); White Blood Count 3.9 T/CUMM (4-12)
[2019-11-19] MEDS: HEPARIN 5,000 UNIT/1 ML VIAL SUBCUT SCH ×3 (05:39→21:12)
[2019-11-19] MEDS: ACETAMINOPHEN 325 MG TABLET PO PRN (05:39)
[2019-11-19 06:00] LABS: Albumin 2.5 G/DL (3.4-5.0); Bilirubin,Total 0.5 MG/DL (0.2-1.0); Calcium 8.3 MG/DL (8.5-10.1); Osmolality,Calculated 287.1 MOS/KG (273-304); Total Protein 6.4 G/DL (6.4-8.3)
[2019-11-19] MEDS: AZTREONAM 500 MG in SODIUM CHLORIDE 0.9% 50 ML IV SCH ×3 (06:14→17:50)
[2019-11-19] MEDS: ASPIRIN CHEW 81 MG TABLET PO SCH (09:15)
[2019-11-19] MEDS: HYDROXYCHLOROQUINE 200 MG TABLET PO SCH ×2 (09:15→21:13)
[2019-11-19] MEDS: ISOSORBIDE MONONITRATE 30 MG TABLET PO SCH (09:15)
[2019-11-19] MEDS: AZITHROMYCIN 250 MG TABLET PO SCH (09:15)
[2019-11-19] MEDS: PANTOPRAZOLE 40 MG TABLET PO SCH (09:15)
[2019-11-19] MEDS: LABETALOL 200 MG TABLET PO SCH ×2 (09:15→21:13)
[2019-11-19] MEDS: SEVELAMER CARBONATE 800 MG TABLET PO SCH ×3 (09:15→17:50)
[2019-11-20] MEDS: ACETAMINOPHEN 325 MG TABLET PO PRN (00:51)
[2019-11-20] MEDS: AZTREONAM 500 MG in SODIUM CHLORIDE 0.9% 50 ML IV SCH ×5 (00:51→23:13)
[2019-11-20 03:36] LABS: ABG Base Excess -2.7 MMOL/L (-2.5-2.5); ABG Oxygen Saturation 89.5 % (95-100); ABG PCO2 35.3 MM HG (35-48); ABG PH 7.394 (7.35-7.45); ABG TCO2 18.8 MMOL/L (23-27); Allen Test Positive
[2019-11-20 04:46] LABS: Basophils % 0.2 % (0.0-0.8); Hematocrit 40.4 VOL% (42.0-52.0); Hemoglobin 13.5 GM/DL (14.0-18.0); Immature Granulocytes % 1.1 %; Immature Granulocytes Absolute 0.05 #; Lymphocytes # 0.9 10*3/uL (1.4-4.0); Lymphocytes % 19.7 % (21.2-54.2); Mean Corpuscular HGB Conc 33.4 GM/DL (32-36); Mean Corpuscular Volume 87.1 FL (87-102); Mean Platelet Volume 10.1 FL (9.6-12.0); Monocytes % 10.8 % (1.7-12.7); Neutrophils % 68.2 % (38.7-73.9); Platelet Count 274 T/CUMM (130-400); Red Blood Count 4.64 MC/CUMM (3.8-5.5); Red Cell Distribution Width 15.2 % (9.3-17.3); White Blood Count 4.4 T/CUMM (4-12)
[2019-11-20 04:57] LABS: Albumin 2.4 G/DL (3.4-5.0); Bilirubin,Total 0.4 MG/DL (0.2-1.0); Calcium 7.9 MG/DL (8.5-10.1); Osmolality,Calculated 289.9 MOS/KG (273-304); Total Protein 6.3 G/DL (6.4-8.3)
[2019-11-20 05:23] LABS: Band Neutrophils 2 % (0-10); Lymphocytes 13 % (20-55); Platelet Estimate Adequate; Segmented Neutrophils 70 % (50-85); Total Cells Counted 100
[2019-11-20 05:24] LABS: Hypochromasia 1+; Ovalocytes Slight
[2019-11-20] MEDS: HEPARIN 5,000 UNIT/1 ML VIAL SUBCUT SCH ×3 (05:49→19:29)
[2019-11-20] MEDS: AZITHROMYCIN 250 MG TABLET PO SCH (08:15)
[2019-11-20] MEDS: ZINC SULFATE 220 MG CAPSULE PO SCH (08:15)
[2019-11-20] MEDS: PANTOPRAZOLE 40 MG TABLET PO SCH (08:15)
[2019-11-20] MEDS: SEVELAMER CARBONATE 800 MG TABLET PO SCH ×3 (08:15→16:15)
[2019-11-20] MEDS: ASPIRIN CHEW 81 MG TABLET PO SCH (08:15)
[2019-11-20] MEDS: HYDROXYCHLOROQUINE 200 MG TABLET PO SCH ×2 (08:15→21:07)
[2019-11-20] MEDS: ISOSORBIDE MONONITRATE 30 MG TABLET PO SCH (08:15)
[2019-11-20] MEDS: LABETALOL 200 MG TABLET PO SCH ×2 (08:15→21:07)
[2019-11-21] MEDS: HEPARIN 5,000 UNIT/1 ML VIAL SUBCUT SCH ×3 (03:39→20:15)
[2019-11-21] MEDS: ACETAMINOPHEN 325 MG TABLET PO PRN ×2 (03:42→20:15)
[2019-11-21] MEDS: AZTREONAM 500 MG in SODIUM CHLORIDE 0.9% 50 ML IV SCH ×3 (05:00→20:15)
[2019-11-21 05:16] LABS: Basophils % 0.5 % (0.0-0.8); Hematocrit 37.7 VOL% (42.0-52.0); Hemoglobin 12.9 GM/DL (14.0-18.0); Immature Granulocytes % 3.6 %; Immature Granulocytes Absolute 0.16 #; Lymphocytes # 0.7 10*3/uL (1.4-4.0); Mean Corpuscular HGB Conc 34.2 GM/DL (32-36); Mean Corpuscular Volume 85.5 FL (87-102); Mean Platelet Volume 10.3 FL (9.6-12.0); Monocytes % 9.5 % (1.7-12.7); Neutrophils % 70.4 % (38.7-73.9); Platelet Count 307 T/CUMM (130-400); Red Blood Count 4.41 MC/CUMM (3.8-5.5); White Blood Count 4.4 T/CUMM (4-12)
[2019-11-21 05:29] LABS: Calcium 8.1 MG/DL (8.5-10.1); Osmolality,Calculated 291.4 MOS/KG (273-304)
[2019-11-21 05:50] LABS: Eosinophils 1 % (0-10); Hypochromasia 1+; Lymphocytes 11 % (20-55); Ovalocytes Slight; Platelet Estimate Adequate; Segmented Neutrophils 78 % (50-85); Total Cells Counted 100
[2019-11-21] MEDS: PANTOPRAZOLE 40 MG TABLET PO SCH (08:28)
[2019-11-21] MEDS: AZITHROMYCIN 250 MG TABLET PO SCH (08:28)
[2019-11-21] MEDS: LABETALOL 200 MG TABLET PO SCH ×2 (08:28→20:15)
[2019-11-21] MEDS: ISOSORBIDE MONONITRATE 30 MG TABLET PO SCH (08:28)
[2019-11-21] MEDS: ASPIRIN CHEW 81 MG TABLET PO SCH (08:28)
[2019-11-21] MEDS: SEVELAMER CARBONATE 800 MG TABLET PO SCH ×3 (08:28→16:45)
[2019-11-21] MEDS: HYDROXYCHLOROQUINE 200 MG TABLET PO SCH ×2 (09:13→20:15)
[2019-11-22] MEDS: AZTREONAM 500 MG in SODIUM CHLORIDE 0.9% 50 ML IV SCH ×4 (03:15→20:30)
[2019-11-22] MEDS: ACETAMINOPHEN 325 MG TABLET PO PRN ×2 (03:40→20:30)
[2019-11-22] MEDS: HEPARIN 5,000 UNIT/1 ML VIAL SUBCUT SCH ×3 (04:03→20:30)
[2019-11-22] MEDS: PANTOPRAZOLE 40 MG TABLET PO SCH (09:48)
[2019-11-22] MEDS: HYDROXYCHLOROQUINE 200 MG TABLET PO SCH (09:48)
[2019-11-22] MEDS: LABETALOL 200 MG TABLET PO SCH ×2 (09:48→20:30)
[2019-11-22] MEDS: ASPIRIN CHEW 81 MG TABLET PO SCH (09:48)
[2019-11-22] MEDS: AZITHROMYCIN 250 MG TABLET PO SCH (09:48)
[2019-11-22] MEDS: SEVELAMER CARBONATE 800 MG TABLET PO SCH ×3 (09:48→17:42)
[2019-11-22] MEDS: ZINC SULFATE 220 MG CAPSULE PO SCH (09:48)
[2019-11-22] MEDS: ISOSORBIDE MONONITRATE 30 MG TABLET PO SCH (09:48)
[2019-11-22] MEDS ORDERED: ONDANSETRON 4 MG/2 ML VIAL IV PRN (10:52)
[2019-11-22 10:56] LABS: Basophils % 0.4 % (0.0-0.8); Eosinophils % 0.4 % (0.00-10.9); Hematocrit 37.6 VOL% (42.0-52.0); Hemoglobin 12.7 GM/DL (14.0-18.0); Immature Granulocytes % 1.4 %; Immature Granulocytes Absolute 0.07 #; Lymphocytes # 0.7 10*3/uL (1.4-4.0); Lymphocytes % 13.7 % (21.2-54.2); Mean Corpuscular HGB Conc 33.8 GM/DL (32-36); Mean Corpuscular Volume 87.6 FL (87-102); Mean Platelet Volume 9.8 FL (9.6-12.0); Monocytes % 10.5 % (1.7-12.7); Neutrophils % 73.6 % (38.7-73.9); Platelet Count 393 T/CUMM (130-400); Red Blood Count 4.29 MC/CUMM (3.8-5.5); Red Cell Distribution Width 15.3 % (9.3-17.3); White Blood Count 5.1 T/CUMM (4-12)
[2019-11-22 11:14] LABS: Hypochromasia 1+; Lymphocytes 17 % (20-55); Platelet Estimate Adequate; Segmented Neutrophils 73 % (50-85); Total Cells Counted 100
[2019-11-22 11:20] LABS: Calcium 8.3 MG/DL (8.5-10.1); Osmolality,Calculated 294.5 MOS/KG (273-304)
[2019-11-22 18:38] LABS: HIV Antigen/Antibody Result Nonreactive (Nonreactive)
[2019-11-23] MEDS: AZTREONAM 500 MG in SODIUM CHLORIDE 0.9% 50 ML IV SCH ×2 (03:47→08:35)
[2019-11-23] MEDS: HEPARIN 5,000 UNIT/1 ML VIAL SUBCUT SCH ×2 (04:07→12:40)
[2019-11-23] MEDS: ASPIRIN CHEW 81 MG TABLET PO SCH (08:35)
[2019-11-23] MEDS: ISOSORBIDE MONONITRATE 30 MG TABLET PO SCH (08:35)
[2019-11-23] MEDS: SEVELAMER CARBONATE 800 MG TABLET PO SCH ×2 (08:35→12:40)
[2019-11-23] MEDS: LABETALOL 200 MG TABLET PO SCH (08:35)
[2019-11-23] MEDS: PANTOPRAZOLE 40 MG TABLET PO SCH (08:35)
[2019-11-23 09:20] LABS: Basophils % 0.5 % (0.0-0.8); Eosinophils # 0.1 10*3/uL (0.0-0.87); Eosinophils % 1.1 % (0.00-10.9); Hematocrit 39.5 VOL% (42.0-52.0); Hemoglobin 12.9 GM/DL (14.0-18.0); Immature Granulocytes Absolute 0.11 #; Lymphocytes # 0.9 10*3/uL (1.4-4.0); Lymphocytes % 15.5 % (21.2-54.2); Mean Corpuscular HGB Conc 32.7 GM/DL (32-36); Mean Corpuscular Volume 88.6 FL (87-102); Mean Platelet Volume 9.4 FL (9.6-12.0); Monocytes % 11.6 % (1.7-12.7); Neutrophils % 69.3 % (38.7-73.9); Platelet Count 431 T/CUMM (130-400); Red Blood Count 4.46 MC/CUMM (3.8-5.5); Red Cell Distribution Width 15.5 % (9.3-17.3); White Blood Count 5.5 T/CUMM (4-12)
[2019-11-23 09:35] LABS: Calcium 8.8 MG/DL (8.5-10.1); Osmolality,Calculated 289.1 MOS/KG (273-304)
[2019-11-23 09:42] LABS: Eosinophils 2 % (0-10); Hypochromasia 1+; Lymphocytes 18 % (20-55); Platelet Estimate Adequate; Segmented Neutrophils 70 % (50-85); Total Cells Counted 100
[2019-11-23 13:25] VITALS: BP 125/70
== END 2019-11-23 14:25 | disposition home or self-care (01) | DRG 177 ==
LOC: N.ED 06:18 → SUATTDRO 09:35 → N.EDINP 09:35 → N.ICU 10:15 → N.2W 11-20 20:53
PROVIDERS: ADMIT Internal Medicine; ATTEND Internal Medicine